=== PATIENT | female | born 1935 | race Caucasian/White ===

== ENCOUNTER 2018-05-07 19:41 | Observation (INO) ==
--- NOTE | 2018-05-07 21:27 | XR ---
EXAM DATE: 05/07/2018 9:17 PM EDT AGE/SEX: 83 years / Female INDICATIONS: Short of breath CLINICAL DATA: This is the patient's initial encounter. Patient reports that signs and symptoms have been present for 1 day and indicates a pain score of 0/10. MEDICAL/SURGICAL HISTORY: None. None. COMPARISON: [facility], CT CHEST W/O CONTRAST, 05/01/2018. . FINDINGS: The heart size is normal. The lungs are clear. There appears to be a fat pad at the left base. There is an old healed right rib fracture. Clips are seen from prior cholecystectomy. There is a mild hiata l hernia seen. CONCLUSION: The lungs are clear. Mild hiatal hernia. Electronically signed by: Colin Julian MD 05/07/2018 9:25 PM EDT
[2018-05-07 21:52] LABS: Baso % (Auto) 0.7 % (0.0-2.0); Eos # (Auto) 0.1 th/mm3 (0.0-0.4); Eos % (Auto) 1.6 % (0.0-4.0); Hematocrit 34.8 % (35.0-46.0); Hemoglobin 11.3 gm/dL (11.6-15.3); Lymph # (Auto) 0.5 th/mm3 (1.0-4.8); Lymph % (Auto) 9.2 % (9.0-44.0); Mean Corpuscular HGB Conc 32.4 % (32.0-36.0); Mean Corpuscular Hemoglobin 28.8 pg (27.0-34.0); Mean Platelet Volume 8.7 fL (7.0-11.0); Mono # (Auto) 0.5 th/mm3 (0.0-0.9); Mono % (Auto) 9.6 % (0.0-8.0); Neut # (Auto) 4.1 th/mm3 (1.8-7.7); Neut % (Auto) 78.9 % (16.0-70.0); Platelet Count 212 th/mm3 (150-450); Red Blood Count 3.91 mil/mm3 (4.00-5.30); Red Cell Distribution Width 16.7 % (11.6-17.2); White Blood Count 5.2 th/mm3 (4.0-11.0)
[2018-05-07 22:04] LABS: Activated Partial Thrombo Time 33.8 sec (24.3-30.1); INR 1.2 Ratio; Prothrombin Time 11.7 sec (9.8-11.6)
[2018-05-07 22:07] LABS: Albumin 4.1 g/dL (3.4-5.0); Anion Gap 13 meq/L (5-15); Aspartate Aminotransferase 36 U/L (15-37); Blood Urea Nitrogen 31 mg/dL (7-18); Calcium 9.8 mg/dL (8.5-10.1); Carbon Dioxide 22.6 meq/L (21.0-32.0); Chloride 100 meq/L (98-107); Glomerular Filtration Rate 13 mL/min (>89); Glucose,Random 87 mg/dL (74-106); Magnesium 2.8 mg/dL (1.5-2.5); Potassium 4.5 meq/L (3.5-5.1); Sodium 136 meq/L (136-145)
[2018-05-07 22:08] LABS: Alanine Aminotransferase 33 U/L (10-53)
[2018-05-07 22:12] LABS: Alkaline Phosphatase 87 U/L (45-117); Total Protein 8.8 g/dL (6.4-8.2)
[2018-05-07 22:14] LABS: Creatine Kinase 76 U/L (26-192)
--- NOTE | 2018-05-07 22:14 | ED ---
HPI General Chief complaint: Recheck/Abnormal Lab/Rx Stated complaint: Medical Time Seen by Provider: 05/07/18 20:35 Source: patient and family Mode of arrival: ambulatory Limitations: no limitations History of Present Illness HPI narrative: 83-year-old female that presents to the ED for evaluation of shortness of breath with exertion. Per patient she has had this for about a month now. Per patient she has been seeing a different hospital for this multiple times. Apparently she went to [facility] twice in when they are more for evaluation of left leg pain. She was told she had a herniated disc and given some pain medications with minimal relief. Apparently she was seen a different time and was diagnosed with a blood clot on her right leg. She apparently has been taking blood thinner since. 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 She denies any chest pain at this time. She does state as well as family that she gets very short of breath with exertion and this is been worsening for the past month. She also complains of left leg pain. She has had ultrasounds that were essentially unremarkable. Apparently she is following without kidney doctor secondary to stage IV kidney disease as well as anemia. She denies any urinary or bowel movement issues. Currently states that her pain in her left leg is 4 out of 10. Related Data Home Medications Medication Instructions Recorded Confirmed albuterol sulfate 2.5 mg INHALATION BID PRN 05/07/18 05/07/18 amlodipine 5 mg PO DAILY 05/07/18 05/07/18 atorvastatin 80 mg PO DAILY 05/07/18 05/07/18 budesonide-formoterol [Symbicort] 2 puff INHALATION BID 05/07/18 05/07/18 calcitriol 0.25 mcg PO WEEKLY 05/07/18 05/07/18 calcium carbonate-vitamin D3 1 tab PO DAILY 05/07/18 05/07/18 [Calcium 600 + D(3)] levothyroxine 50 mcg PO DAILY 05/07/18 05/07/18 lisinopril 20 mg PO DAILY 05/07/18 05/07/18 magnesium 500 mg PO DAILY 05/07/18 05/07/18 pantoprazole 40 mg PO DAILY 05/07/18 05/07/18 rivaroxaban [Xarelto] 15 mg PO DAILY 05/07/18 05/07/18 Allergies Allergy/AdvReac Type Severity Reaction Status Date / Time No Known Allergies Allergy Verified 05/07/18 20:31 Review of Systems ROS Unobtainable All other systems reviewed negative except as stated in HPI [facility] Medical History Medical History Anemia (Acute) Kidney disease (Acute) DVT (deep venous thrombosis) (Acute) COPD (chronic obstructive pulmonary disease) (Acute) H/O: hysterectomy (Acute) Hypercholesteremia (Acute) Hypertension (Acute) Hypothyroid (Acute) Presence of IVC filter (Acute) Pulmonary embolism (Acute) Surgical History Surgical History Hx of section (Acute) Hx of cholecystectomy (Acute) Social History Social History Substance History: No History of Abuse Second Hand Smoke Exposure: No Smoking Status: Former smoker Tobacco Type: Cigarettes How Often Do You Have a Drink Containing Alcohol: Monthly or less Recent Travel in [facility] within the Last 8 Weeks: No Recent Out of Country Travel within the Last 8 Weeks: No Immunization History Tetanus Immunization: Unsure Hx Influenza Vaccine This Season: No Exam Narrative Exam Narrative: GENERAL: Well-appearing SKIN: Focused skin assessment warm/dry. HEAD: Atraumatic. Normocephalic. EYES: Pupils equal and round. No scleral icterus. No injection or drainage. ENT: No nasal bleeding or discharge. Mucous membranes pink and moist. Tongue is midline. No Uvula deviation. NECK: Trachea midline. No JVD. CARDIOVASCULAR: Regular rate and rhythm. No murmur appreciated. RESPIRATORY: No accessory muscle use. Clear to auscultation. Breath sounds equal bilaterally. GASTROINTESTINAL: Abdomen soft, non-tender, nondistended. Hepatic and splenic margins not palpable. MUSCULOSKELETAL: No obvious deformities. No clubbing. No cyanosis. No edema. Full range of motion of the upper and lower extremities bilaterally. 2+ pulses bilaterally. Some soft tissue swelling and a 1+ pitting edema on the lower extremities or more on the right than left. Minimal on the left. NEUROLOGICAL: Awake and alert. No obvious cranial nerve deficits. Motor grossly within normal limits. Normal speech. PSYCHIATRIC: Appropriate mood and affect; insight and judgment normal. Course Initial Documented Vital Signs Temperature 98.5 F 05/07/18 20:22 Pulse Rate 114 H 05/07/18 20:22 Respiratory Rate 18 05/07/18 20:22 Blood Pressure 163/64 H 05/07/18 20:22 Pulse Oximetry 96 05/07/18 20:22 Last Documented Vital Signs Temperature 98.4 F 05/08/18 16:10 Pulse Rate 78 05/08/18 16:10 Respiratory Rate 16 05/08/18 16:10 Blood Pressure 122/58 L 05/08/18 16:10 Pulse Oximetry 94 L 05/08/18 16:10 Medical Decision Making SHARMILA Attestation SHARMILA supervised visit: Yes Attestation: I, Dr. Mac, have reviewed the advance practice practitioner's documentation and am in agreement, met with the patient face to face, made the diagnosis, and the medical decision making was done by me. The patient was initially evaluated by Los, the physician family services assistant. Please see their complete history and physical. *My assessment and Findings: The patient presents with history of generalized weakness, bilateral lower extremity pain with any type of exertion, and shortness of breath with exertion that is gradually been getting worse over the last month. She has seen her primary care physician and undergone a workup to include an ultrasound of her lower extremities which did reveal evidence of a DVT. 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 The patient denies being checked for a pulmonary embolism recently. She reports that they have evaluated her lower extremity circulation and she reportedly has good arterial circulation to her legs. She reports a prior history of smoking, quitting smoking approximately a year ago. She denies undergoing any type of cardiac evaluation during the past month. She denies undergoing stress testing previously. She denies any prior history of myocardial infarction or history of coronary artery disease. She denies having any chest pain or pressure with this. During the course of the patient's emergency department visit, the patient's history, examination, and differential diagnosis were reviewed with the patient. The patient was placed on a color television console monitor with oximetry and frequent blood pressure monitoring. The patient had IV access obtained and blood work sent for analysis. The patient was initially provided an aspirin p.o, nitroglycerin 1 inch to the chest wall. The patient's laboratory studies were reviewed and remarkable for A white count of 5.2, platelets 212 with 78.9 neutrophil percent, hemoglobin 11.3, PT 11.7, INR 1.2, PTT 33.8, chemistry is remarkable for a troponin I of less than 0.02, total protein 8.8, magnesium 2.8, GFR 13 with a reported history of her GFR usually being around 25-30, creatinine 3.4, BUN 31. VQ scan to evaluate for PE was ordered by Los. VQ scan was low probability for pulmonary embolism. The patient was agreeable with the plan for admission to the chest pain center for rule out serial cardiac enzyme protocol followed by consideration of stress testing due to progressive generalized weakness and shortness of breath with exertion. MDM Narrative Medical decision making narrative: 83-year-old female that presents to the ED for evaluation of shortness of breath with exertion and left leg pain. Patient was examined and was found to have signs and symptoms of unclear etiology but at this time concerning for PE vs ACS. Labs and imaging ordered. Case was signed out to my attending pending disposition and plan. Differential Diagnosis Differential Diagnosis: Weakness versus CHF exacerbation versus PE versus ACS Medical Records Medical records reviewed: Yes I reviewed the patient's medical records. Lab Data Lab results reviewed: Yes I reviewed the patient's lab results. Result diagrams: 05/07/18 21:15 05/07/18 21:15 Lab Results 05/07/18 05/07/18 05/07/18 Range/Units 21:15 21:15 21:15 WBC 5.2 (4.0-11.0) th/mm3 RBC 3.91 L (4.00-5.30) mil/mm3 Hgb 11.3 L (11.6-15.3) gm/dL Hct 34.8 L (35.0-46.0) % MCV 89.0 (80.0-100.0) fL MCH 28.8 (27.0-34.0) pg MCHC 32.4 (32.0-36.0) % RDW 16.7 (11.6-17.2) % Plt Count 212 (150-450) th/mm3 MPV 8.7 (7.0-11.0) fL Neut % (Auto) 78.9 H (16.0-70.0) % Lymph % (Auto) 9.2 (9.0-44.0) % Bonner % (Auto) 9.6 H (0.0-8.0) % Eos % (Auto) 1.6 (0.0-4.0) % Baso % (Auto) 0.7 (0.0-2.0) % Neut # (Auto) 4.1 (1.8-7.7) th/mm3 Lymph # (Auto) 0.5 L (1.0-4.8) th/mm3 Bonner # (Auto) 0.5 (0.0-0.9) th/mm3 Eos # (Auto) 0.1 (0.0-0.4) th/mm3 Baso # (Auto) 0.0 (0.0-0.2) th/mm3 WBC Differential . Differential Comment Auto diff final PT 11.7 H (9.8-11.6) sec INR 1.2 Ratio APTT 33.8 H (24.3-30.1) sec Sodium (136-145) meq/L Potassium (3.5-5.1) meq/L Chloride (98-107) meq/L Carbon Dioxide (21.0-32.0) meq/L Anion Gap (5-15) meq/L BUN (7-18) mg/dL Creatinine (0.50-1.00) mg/dL Estimated GFR (>89) mL/min Random Glucose (74-106) mg/dL Calcium (8.5-10.1) mg/dL Magnesium (1.5-2.5) mg/dL Total Bilirubin (0.2-1.0) mg/dL AST (15-37) U/L ALT (10-53) U/L Alkaline Phosphatase (45-117) U/L Total Creatine Kinase (26-192) U/L Troponin I (0.02-0.05) ng/mL B-Natriuretic Peptide 18 (0-100) pg/mL Total Protein (6.4-8.2) g/dL Albumin (3.4-5.0) g/dL 05/07/18 05/08/18 05/08/18 Range/Units 21:15 03:45 06:58 WBC (4.0-11.0) th/mm3 RBC (4.00-5.30) mil/mm3 Hgb (11.6-15.3) gm/dL Hct (35.0-46.0) % MCV (80.0-100.0) fL MCH (27.0-34.0) pg MCHC (32.0-36.0) % RDW (11.6-17.2) % Plt Count (150-450) th/mm3 MPV (7.0-11.0) fL Neut % (Auto) (16.0-70.0) % Lymph % (Auto) (9.0-44.0) % Bonner % (Auto) (0.0-8.0) % Eos % (Auto) (0.0-4.0) % Baso % (Auto) (0.0-2.0) % Neut # (Auto) (1.8-7.7) th/mm3 Lymph # (Auto) (1.0-4.8) th/mm3 Bonner # (Auto) (0.0-0.9) th/mm3 Eos # (Auto) (0.0-0.4) th/mm3 Baso # (Auto) (0.0-0.2) th/mm3 WBC Differential Differential Comment PT (9.8-11.6) sec INR Ratio APTT (24.3-30.1) sec Sodium 136 (136-145) meq/L Potassium 4.5 (3.5-5.1) meq/L Chloride 100 (98-107) meq/L Carbon Dioxide 22.6 (21.0-32.0) meq/L Anion Gap 13 (5-15) meq/L BUN 31 H (7-18) mg/dL Creatinine 3.40 H (0.50-1.00) mg/dL Estimated GFR 13 L (>89) mL/min Random Glucose 87 (74-106) mg/dL Calcium 9.8 (8.5-10.1) mg/dL Magnesium 2.8 H (1.5-2.5) mg/dL Total Bilirubin 0.4 (0.2-1.0) mg/dL AST 36 (15-37) U/L ALT 33 (10-53) U/L Alkaline Phosphatase 87 (45-117) U/L Total Creatine Kinase 76 76 70 (26-192) U/L Troponin I Less than 0.02 L Less than 0.02 L Less than 0.02 L (0.02-0.05) ng/mL B-Natriuretic Peptide (0-100) pg/mL Total Protein 8.8 H (6.4-8.2) g/dL Albumin 4.1 (3.4-5.0) g/dL Imaging Data Attestation: I personally reviewed and interpreted this imaging study as follows : Radiologist's impression: Chest X-Ray 05/07/18 21:07 CONCLUSION: The lungs are clear. Mild hiatal hernia. Pulmonary Perfusion Imaging 05/08/18 22:50 CONCLUSION: 1. Negative examination. ECG Data EKG Prior to Arrival: No Attestation: I personally reviewed and interpreted this ECG as follows: Interpretation: EKG shows sinus rhythm with no sign of acute ischemia and arrhythmia read by me and attending. Discharge Plan Discharge Disposition Patient Disposition: 30 Still Patient Physicians Team ED Provider: Georgette Mac ED Midlevel Provider: Jorge Daily Attending Provider: Rian Sanchez Status ED Status: Left Department Discharge Information Discharge Date/Time: 05/08/18 11:48
--- NOTE | 2018-05-08 02:02 | NM ---
EXAM DATE: 05/08/2018 1:31 AM EDT AGE/SEX: 83 years / Female INDICATIONS: Short of breath for 1 month. CLINICAL DATA: This is the patient's initial encounter. Patient reports that signs and symptoms have been present for 1 month and indicates a pain score of 4/10. MEDICAL/SURGICAL HISTORY: Hypertension. Chronic obstructive pulmonary disease. Hypothyroidism . Hysterectomy. Cholecystectomy. COMPARISON: [facility], CHEST 1V SINGLE AP, 05/07/2018. . DOSE: 1.6 mCi Tc99m DTPA aerosol 8.1 mCi Tc99m MAA IV TECHNIQUE: Following five minutes of tidal breathing of DTPA aerosol, planar images of the lungs wer e performed in eight projections. The patient was then injected with MAA, and eight-view perfusion s can was performed. FINDINGS: There is a homogeneous pattern of aerosol delivery to the periphery of both lungs. No focal ventilat ory defects are seen. The perfusion lung scan demonstrates a homogenous pattern of uptake in both lungs. No segmental or s ubsegmental defects are seen. CONCLUSION: 1. Negative examination. Electronically signed by: Ochoa Macdonald MD 05/08/2018 2:00 AM EDT
[2018-05-08] MEDS ORDERED: Acetaminophen 500 MG Tablet PO PRN (03:01)
[2018-05-08 04:33] LABS: Creatine Kinase 76 U/L (26-192)
[2018-05-08 07:57] LABS: Creatine Kinase 70 U/L (26-192)
[2018-05-08] MEDS: Rivaroxaban 15 MG Tablet PO SCH ×2 (09:27→09:32)
[2018-05-08] MEDS: amLODIPine 5 MG Tablet PO SCH (09:28)
[2018-05-08] MEDS: Lisinopril 20 MG Tablet PO SCH (09:30)
[2018-05-08] MEDS: Levothyroxine 50 MCG Tablet PO SCH (09:30)
--- NOTE | 2018-05-08 10:03 | P.HPCA ---
History of Present Illness Primary Care Physician: Chintan Valdez Chief Complaint: Shortness of breath and leg pain History of Present Illness: This is an 83-year-old female history of PE x2 with last being 7 years ago and has IVC filter, DVT of her right leg 2 weeks ago on Xarelto, COPD, hypertension , GERD, and hypothyroidism that presents to ED with complaint of 1 months of having bilateral leg pain when she walks and shortness of breath when she walks. Denies chest discomfort which was asked several times. States she was seen at [facility] twice over the past month and 2 weeks ago at [facility] at which time PE was ruled out but was diagnosed with a right leg DVT and was placed on Xarelto. She is also seen her PCP for her symptoms and has a EMG scheduled tomorrow to see if her leg pain is a result of nerve damage from her back. Denies history of heart disease but cannot recall prior cardiac workup. States she no longer smokes but was smoking about a pack a day for 60 years. Patient also follows nephrology for chronic kidney disease. No longer smokes but did smoke about a pack a day for 60 years. She is not positive family history of CAD. - Diagnosis (1) Dyspnea (2) Bilateral leg pain (3) History of DVT (deep vein thrombosis) (4) History of pulmonary embolus (PE) (5) Chronic kidney disease Inpatient Certification: I certify that the inpatient services were ordered in accordance with Medicare regulations governing the order. This includes certification that hospital inpatient services are reasonable and necessary and in the case of services not specified as inpatient-only under 42 CFR 419.22(n), that they are appropriately provided as inpatient services in accordance to with the 2-midnight benchmark under 43 CFR 412.3(e) Review of Systems General: Patient denies fevers, chills, and recent travel. HEENT: Patient denies headache, sore throat, difficulty swallowing. Cardiovascular: Denies chest discomfort as mentioned above. Denies sensation of heart beating rapidly or irregularly. No syncope. Denies diaphoresis. Respiratory: Patient has had shortness of breath for some time with COPD but states that her symptoms have worsened over the past month. Denies coughing wheezing or hemoptysis. GI: Patient denies nausea, vomiting, diarrhea, abdominal pain, bloody stools. Musculoskeletal: She has had bilateral leg pain for a month with walking. Also recently diagnosed with right leg DVT 2 weeks ago and is on Xarelto. Denies any swelling in her legs. Neurovascular: Patient denies numbness, tingling, weakness in extremities. Denies headache. Endocrine: Denies polyuria and polydipsia. Hematologic: Denies easy bruising. Skin: Denies rash or itching. PMF - History History Provided By: Patient - Medical History Medical History: Medical History (Last Reviewed 05/07/18 @ 22:12 by JIGNESH Morton) Anemia (Acute) Kidney disease (Acute) DVT (deep venous thrombosis) (Acute) COPD (chronic obstructive pulmonary disease) H/O: hysterectomy Hypercholesteremia Hypertension Hypothyroid Presence of IVC filter Pulmonary embolism - Surgical History Surgical History: Surgical History (Last Reviewed 05/07/18 @ 22:12 by JIGNESH Morton) Hx of section (Acute) Hx of cholecystectomy (Acute) - Tobacco History Smoking Status: Former smoker - Alcohol History How Often Do You Have a Drink Containing Alcohol: Monthly or less - Substance Use History Substance History: No History of Abuse - Travel History Recent Travel in the [place] Within the Last 8 Weeks: No Recent Travel Out of the Country Within the Last 8 Weeks: No - Immunization History Tetanus Immunization: Unsure Hx Influenza Vaccine This Season: No Medications and Allergies Active Medications: Active Medications Acetaminophen (Tylenol) 500 mg PO Q4H PRN PRN Reason: HEADACHE Albuterol (Duoneb Neb (Prn)) 1 ampul NEB Q4HR NEB PRN PRN Reason: SHORTNESS OF BREATH/WHEEZING Amlodipine Besylate (Norvasc) 5 mg PO DAILY [facility] Last Admin: 05/08/18 09:28 Dose: Not Given Atorvastatin Calcium (Lipitor) 80 mg PO DAILY [facility] Last Admin: 05/08/18 09:27 Dose: 80 mg Levothyroxine Sodium (Synthroid) 50 mcg PO DAILY@0600 [facility] Last Admin: 05/08/18 09:30 Dose: Not Given Lisinopril (Prinivil) 20 mg PO DAILY [facility] Last Admin: 05/08/18 09:30 Dose: 20 mg Non-Formulary Medication (Magnesium [Magnesium]) 500 mg PO DAILY [facility] Last Admin: 05/08/18 09:29 Dose: Not Given Pantoprazole Sodium (Protonix) 40 mg PO DAILY [facility] Last Admin: 05/08/18 09:27 Dose: 40 mg Rivaroxaban (Xarelto) 15 mg PO DAILY [facility] Last Admin: 05/08/18 09:32 Dose: Not Given Sodium Chloride (Ns Flush) 2 ml IV.FLUSH UNSCH PRN PRN Reason: FLUSH AFTER USING IV ACCESS Sodium Chloride (Ns Flush) 2 ml IV.FLUSH BID [facility] Last Admin: 05/08/18 09:31 Dose: Not Given Sodium Chloride (Ns Flush) 2 ml IV.FLUSH PRN PRN PRN Reason: FLUSH AFTER USING IV ACCESS Allergies Allergy/AdvReac Type Severity Reaction Status Date / Time No Known Allergies Allergy Verified 05/07/18 20:31 Home Medications Medication Instructions Recorded Confirmed Type albuterol sulfate 2.5 mg INHALATION BID PRN 05/07/18 05/07/18 History amlodipine 5 mg PO DAILY 05/07/18 05/07/18 History atorvastatin 80 mg PO DAILY 05/07/18 05/07/18 History budesonide-formoterol [Symbicort] 2 puff INHALATION BID 05/07/18 05/07/18 History calcitriol 0.25 mcg PO WEEKLY 05/07/18 05/07/18 History calcium carbonate-vitamin D3 1 tab PO DAILY 05/07/18 05/07/18 History [Calcium 600 + D(3)] levothyroxine 50 mcg PO DAILY 05/07/18 05/07/18 History lisinopril 20 mg PO DAILY 05/07/18 05/07/18 History magnesium 500 mg PO DAILY 05/07/18 05/07/18 History pantoprazole 40 mg PO DAILY 05/07/18 05/07/18 History rivaroxaban [Xarelto] 15 mg PO DAILY 05/07/18 05/07/18 History Exam Vital signs: Vital Signs 05/07/18 20:22 05/07/18 20:31 05/07/18 21:34 Temperature 98.5 F Pulse Rate 114 H 76 Respiratory Rate 18 18 Blood Pressure 163/64 H 147/74 H Pulse Oximetry 96 97 99 05/07/18 22:00 05/07/18 23:00 05/07/18 23:25 Temperature Pulse Rate 70 69 Respiratory Rate 18 18 Blood Pressure 135/61 164/67 H Pulse Oximetry 99 100 99 05/08/18 02:01 05/08/18 05:00 05/08/18 07:03 Temperature Pulse Rate 70 90 68 Respiratory Rate 18 18 Blood Pressure 145/69 H 109/60 114/58 L Pulse Oximetry 97 96 Intake & Output 05/07/18 05/08/18 05/08/18 18:59 06:59 18:59 Weight 56.699 kg Narrative: GENERAL: This is a well-nourished, well-developed patient, in no apparent distress. Patient speaks in clear complete sentences. Patient is pleasant. HEENT: Head is atraumatic and normocephalic. Neck is supple without lymphadenopathy and trachea is midline. No JVD or carotid bruits. CARDIOVASCULAR: Regular rate and rhythm without murmurs, gallops, or rubs. RESPIRATORY: Clear to auscultation. Breath sounds equal bilaterally. No wheezes , rales, or rhonchi. Chest wall is nontender. No use of accessory muscles. GASTROINTESTINAL: Abdomen is nontender, nondistended. Abdomen soft. No obvious pulsatile mass or bruit. No CVA tenderness. Strong femoral pulses bilaterally. Normal bowel sounds in all quadrants. MUSCULOSKELETAL: Patient is moving upper and lower extremities freely. No calf tenderness or edema, no Homans sign. Strong pulses in upper and lower extremities. NEUROLOGICAL: Patient is alert and oriented. Cranial nerves 2-12 are grossly intact. No focal deficits and speech is clear. SKIN: No rash and turgor is normal. Results 05/07/18 21:15 05/07/18 21:15 Cardiac Enzymes 05/07/18 05/07/18 05/08/18 Range/Units 21:15 21:15 03:45 AST 36 (15-37) U/L Troponin I Less than 0.02 L Less than 0.02 L (0.02-0.05) ng/mL B-Natriuretic Peptide 18 (0-100) pg/mL 05/08/18 Range/Units 06:58 AST (15-37) U/L Troponin I Less than 0.02 L (0.02-0.05) ng/mL B-Natriuretic Peptide (0-100) pg/mL Coagulation 05/07/18 05/07/18 Range/Units 21:15 21:15 PT 11.7 H (9.8-11.6) sec APTT 33.8 H (24.3-30.1) sec B-Natriuretic Peptide 18 (0-100) pg/mL CBC 05/07/18 Range/Units 21:15 WBC 5.2 (4.0-11.0) th/mm3 RBC 3.91 L (4.00-5.30) mil/mm3 Hgb 11.3 L (11.6-15.3) gm/dL Hct 34.8 L (35.0-46.0) % Plt Count 212 (150-450) th/mm3 Neut # (Auto) 4.1 (1.8-7.7) th/mm3 Lymph # (Auto) 0.5 L (1.0-4.8) th/mm3 [place] # (Auto) 0.5 (0.0-0.9) th/mm3 Eos # (Auto) 0.1 (0.0-0.4) th/mm3 Baso # (Auto) 0.0 (0.0-0.2) th/mm3 Comprehensive Metabolic Panel 05/07/18 Range/Units 21:15 Sodium 136 (136-145) meq/L Potassium 4.5 (3.5-5.1) meq/L Chloride 100 (98-107) meq/L Carbon Dioxide 22.6 (21.0-32.0) meq/L BUN 31 H (7-18) mg/dL Creatinine 3.40 H (0.50-1.00) mg/dL Calcium 9.8 (8.5-10.1) mg/dL AST 36 (15-37) U/L ALT 33 (10-53) U/L Alkaline Phosphatase 87 (45-117) U/L Total Protein 8.8 H (6.4-8.2) g/dL Albumin 4.1 (3.4-5.0) g/dL Intake and Output 05/07/18 05/08/18 05/08/18 22:59 06:59 14:59 Other: Weight 56.699 kg EKG interpretations - EKG EKG shows: sinus rhythm (EKGs have been sinus rhythm with out significant ST segment depressions or elevations.) Caprini VTE Risk Assessment Caprini VTE Risk Assessment: Moderate/High Risk (score >= 2) Caprini Risk Assessment Model: Point Value = 1 Point Value = 2 Point Value = 3 Point Value = 5 Age 41-60 Minor surgery BMI > 25 kg/m2 Swollen legs Varicose veins or History of unexplained or recurrent spontaneous Oral contraceptives or hormone replacement Sepsis (< 1 month) Serious lung disease, including pneumonia (< 1 month) Abnormal pulmonary function Acute myocardial infarction Congestive heart failure (< 1 month) History of inflammatory bowel disease Medical patient at bed rest Age 61-74 Arthroscopic surgery Major open surgery (> 45 min) Laparoscopic surgery (> 45 min) Malignancy Confined to bed (> 72 hours) Immobilizing plaster cast Central venous access Age >= 75 History of VTE Family history of VTE Factor V Leiden Prothrombin [id number] Lupus anticoagulant Anticardiolipin antibodies Elevated serum homocysteine Heparin-induced thrombocytopenia Other congenital or acquired thrombophilia Stroke (< 1 month) Elective arthroplasty Hip, pelvis, or leg fracture Acute spinal cord injury (< 1 month) Prophylaxis Regimen: Total Risk Factor Score Risk Level Prophylaxis Regimen 0-1 Low Early ambulation 2 Moderate Order ONE of the following: *Sequential Compression Device (SCD) *Heparin 5000 units SQ BID 3-4 Higher Order ONE of the following medications: *Heparin 5000 units SQ TID *Enoxaparin/Lovenox 40 mg SQ daily (WT < 150 kg, CrCl > 30 mL/min) *Enoxaparin/Lovenox 30 mg SQ daily (WT < 150 kg, CrCl > 10-29 mL/min) *Enoxaparin/Lovenox 30 mg SQ BID (WT < 150 kg, CrCl > 30 mL/min) AND/OR *Sequential Compression Device (SCD) 5 or more Highest Order ONE of the following medications: *Heparin 5000 units SQ TID (Preferred with Epidurals) *Enoxaparin/Lovenox 40 mg SQ daily (WT < 150 kg, CrCl > 30 mL/min) *Enoxaparin/Lovenox 30 mg SQ daily (WT < 150 kg, CrCl > 10-29 mL/min) *Enoxaparin/Lovenox 30 mg SQ BID (WT < 150 kg, CrCl > 30 mL/min) AND *Sequential Compression Device (SCD) Assessment and Plan - Assessment (1) Dyspnea Code(s): R06.00 - Dyspnea, unspecified Status: Acute (2) Bilateral leg pain Code(s): M79.604 - Pain in right leg; M79.605 - Pain in left leg Status: Acute (3) History of DVT (deep vein thrombosis) Code(s): Z86.718 - Personal history of other venous thrombosis and embolism Status: Acute (4) History of pulmonary embolus (PE) Code(s): Z86.711 - Personal history of pulmonary embolism Status: Acute (5) Chronic kidney disease Code(s): N18.9 - Chronic kidney disease, unspecified Status: Acute - Plan * Dyspnea: Patient will have serial cardiac enzymes and EKGs for ruling out purposes. She was seen by Dr. Chintan Valdez of cardiology in the chest pain center and will undergo a Lexiscan on Tuesday morning as she had a VQ scan performed 130 this morning through the ED. Patient would be discharged home if her stress test is nonischemic with instructions to follow-up PCP and return to ED as needed. * Recent DVT: Continue her Xarelto. * Hypertension: Continue medication. * COPD: Have DuoNeb's as needed. Resume medication at discharge. * GERD: Continue medication. Patient is stable at this time. She is agreeable to this plan.
--- NOTE | 2018-05-08 14:42 | ECG ---
Date Performed: 05/08/2018 Time Performed: 06:47:55 PTAGE: 83 years EKG: Sinus rhythm NORMAL ECG PREVIOUS TRACING : 05/08/2018 03.55 Since previous tracing, no significant change noted DOCTOR: Chintan Valdez Interpretating Date/Time 05/08/2018 14:42:13
--- NOTE | 2018-05-08 14:43 | ECG ---
Date Performed: 05/08/2018 Time Performed: 03:55:01 PTAGE: 83 years EKG: Sinus rhythm NORMAL ECG PREVIOUS TRACING : 05/07/2018 21.23 Since previous tracing, no significant change noted DOCTOR: Chintan Valdez Interpretating Date/Time 05/08/2018 14:42:36
--- NOTE | 2018-05-08 14:44 | ECG ---
Date Performed: 05/07/2018 Time Performed: 21:23:37 PTAGE: 83 years EKG: Sinus rhythm NORMAL ECG NO PREVIOUS TRACING DOCTOR: Chintan Valdez Interpretating Date/Time 05/08/2018 14:43:16
[2018-05-09] MEDS: Levothyroxine 50 MCG Tablet PO SCH (06:33)
[2018-05-09] MEDS: Lisinopril 20 MG Tablet PO SCH (09:27)
[2018-05-09] MEDS: amLODIPine 5 MG Tablet PO SCH (11:11)
[2018-05-09] MEDS: Rivaroxaban 15 MG Tablet PO SCH (11:11)
[2018-05-09] MEDS ORDERED: amLODIPine 5 MG Tablet PO SCH (21:00)
[2018-05-09] MEDS ORDERED: Rivaroxaban 15 MG Tablet PO SCH (21:00)
[2018-05-10] MEDS: Levothyroxine 50 MCG Tablet PO SCH (05:49)
[2018-05-10] MEDS ORDERED: Regadenoson Inj 0.4 MG/5 ML Syringe IV.PUSH ONE (10:42)
--- NOTE | 2018-05-10 12:20 | NM ---
EXAM DATE: 05/10/2018 12:14 PM EDT AGE/SEX: 83 years / Female INDICATIONS:Angina. . Left sided chest pain with dyspnea. CLINICAL DATA: This is the patient's initial encounter. Patient reports that signs and symptoms have been present for 1 day and indicates a pain score of 4/10. MEDICAL/SURGICAL HISTORY: Hypertension. Hypothyroidism. Chronic obstructive pulmonary disease . section. Cholecystectomy. COMPARISON: No prior exams available for comparison. DOSE: 8.5 mCi Tc 99m Myoview at rest 25.4 mCi [id number] at stress 0.4 mg Lexiscan STRESS SYMPTOMS: Dyspnea and arms tingling. EJECTION FRACTION: >70 % TECHNIQUE: The patient underwent pharmacologic stress with infusion of prescribed dose. Continuous ECG tracing was monitored during stress. Gated SPECT imaging was performed after stress and conventi onal SPECT imaging was performed at rest. The examination was performed on a SPECT/CT scanner, both attenuation and non-corrected datasets were reviewed. FINDINGS: Distribution: The maximum perfused segment at stress is in the anterior wall. Perfusion Study: The pattern of perfusion at stress is within normal limits. Gated Study: The inferior apical wall appears to be dyskinetic. Otherwise, there is good contraction of the ventricle. The ejection fraction is calculated at >70%. RISK CATEGORY: Low (<1% Annual Motality Rate) CONCLUSION: 1. No evidence of ischemic myocardial changes. Electronically signed by: Aldo Castillo MD 05/10/2018 12:19 PM EDT
[2018-05-10] MEDS: Lisinopril 20 MG Tablet PO SCH (13:13)
--- NOTE | 2018-05-11 12:03 | TR ---
Date Performed: 05/10/2018 Time Performed: 10:35:29 DOCTOR: Roslyn Soriano DRUG LIST: CLINICAL HISTORY: CHEST PAIN REASON FOR TEST: CHEST PAIN REASON FOR ENDING: OBSERVATION: CONCLUSION: Lexiscan stress test was performed under standard four minute protocol. Radionuclid e was injected one minute prior to ending the test. No electrocardiographic abormalities were present to suggest ischemia. Nuclear imaging and interpretation are pending. COMMENTS: no ischemia
== END 2018-05-10 17:30 | disposition home or self-care (01) ==
LOC: NEPE 19:41 → NEPGCP 19:41 → NEDA 19:41 → NEPGCP 05-08 11:54
PROVIDERS: ADMIT Internal Medicine Interventional Cardiology; ATTEND Internal Medicine Interventional Cardiology